=== PATIENT | male | born 1975 | race Caucasian/White ===

== ENCOUNTER 2023-08-29 21:42 | Emergency (ER) | payer OTHER, SELFPAY ==
[2023-08-29 21:44] VITALS: BP 124/78
--- NOTE | 2023-08-29 22:25 | ED.GENMED ---
History of Present Illness
General
Chief Complaint: Skin Problem
Source: patient
Exam Limitations: none
Time Seen by Provider: 08/29/23 22:03
Nursing documentation reviewed up to this point in time: agreed with
Travel History
Have you had any contact with someone who has COVID-19?: No
Do you have any symptoms of coronavirus? Fever > 100 degrees, chills, cough, shortness of breath, sore throat, loss of taste or smell, muscle aches, or headache?: No
History of Present Illness
History of Present Illness:
This is a 48-year-old gentleman who has history of rxd-ukwyuvy-igrwrhdmh diabetes, maintained on Farxiga. Fairly well-controlled with reported last hemoglobin A1c of 6.6. He also has history of gout, well-controlled and maintained on allopurinol.
He presents with left palmar laceration that occurred while working with a metal burring tool at home this afternoon around 12 noon, the tool slipped and cut his left thenar palm. He is right-hand dominant.
He admits to mild to moderate bleeding initially and thought that the cut looked 'deep' but rinsed it out with water peroxide, dressed the wound but then tonight upon further investigation he thought that he may need stitches and presents to the ED.
No recurrent bleeding. He admits to mild local pain. No weakness nor numbness.
He is unsure as to his last tetanus booster.
Past History
Past History
ED Past Medical History: NIDDM and Other (gout)
Social History
Tobacco: Non-smoker
Personal:
Living: with family
Employment: Employed
Family History
Family History: Other (Noncontributory)
Phy Exam
Physical Exam
Physical Exam:
TRAUMA EXAM:
VITAL SIGNS: Vital signs reviewed, cooperative
DISTRESS: No active disease
EYES: no orbital trauma
NOSE: No deformity or epistaxis
FACE AND SCALP: No scalp or facial trauma, external canals no blood
NECK: Supple nontender
BACK: Back nontender, pelvis stable to compression
RESPIRATORY: No distress
CARDIAC: No murmur, pulses equal and strong
ABDOMEN: Soft nontender bowel sounds normal
SKIN: Warm and dry, normal color. Good turgor.
EXTREMITIES: Left palm, thenar eminence has a 3 cm horizontal laceration that is deep epidermal to superficial subcutaneous in depth. This Wound Is Minimally at the lateral aspect. There is no active bleeding. No soft tissue swelling nor
ecchymosis. Minimal local tenderness to palpation. No foreign body. There is full digit and wrist range of motion without difficulty nor pain. Distal sensation and strength intact.
NEUROLOGICAL: Alert, oriented, no motor deficits
PSYCH: Mood affect normal
Course
Orders/Labs/Results
Orders:
Orders
08/29/23 22:22
Cephalexin Monohydrate [Keflex] 500 mg PO NOW STA
Tetanus/Diphth/Acelpertussis [Adacel] 0.5 ml IM .ONCE ONE
Vital Signs
Initial and Last Documented VS:
Initial Vital Signs
Temp Pulse Resp BP Pulse Ox
97.9 F 68 16 124/78 98
08/29/23 21:44 08/29/23 21:44 08/29/23 21:44 08/29/23 21:44 08/29/23 21:44
Last Documented Vital Signs
Temp Pulse Resp BP Pulse Ox
97.9 F 68 16 124/78 98
08/29/23 21:44 08/29/23 21:44 08/29/23 21:44 08/29/23 21:44 08/29/23 21:44
Procedures
Laceration Closure
Left Lateral Proximal Palmar Hand:
Status of Wound: clean
Size of Wound in cm: 3
Description of Wound Edges: sharp
Preparation: cleaned with saline
Revision/Debridement: routine- no revision and irrigate-direct pressure
Wound exploration: explored to base- no FB and no tendon involvement
Type of Closure: Dermabond-skin glue
MDM/Problems Addressed
Differential Diagnosis Includes:
Patient presents with left palmar wound/laceration occurred at home. Not work-related.
Wound is deep dermal to superficial subcutaneous in depth. There is no muscular involvement. Wound explored, no evidence of foreign body and no history of potential foreign body. No significant tenderness to palpation thus imaging is not
indicated.
Will update Tdap.
As patient has history of diabetes will initiate a short course of Keflex for infection prevention.
Will plan for copious normal saline irrigation and Dermabond repair.
Chronic conditions affecting care: DM
*Pulse Oximetry
Patient hypoxic: no
*Critical Care Note
Total Time (30-74mins, 75-104mins- exclusive of procedures): Not Applicable
ED Attending Note
-
Portions of this chart may have been created with voice recognition software.� Occasional wrong word or��sound alike� substitutions may have occurred due to the inherent limitations of voice recognition software.
Discharge Plan
Departure
Patient Disposition: Home (Routine Discharge)
Date of Disposition: 08/29/23
Time of Disposition: 22:48
Patient with high blood pressure during this ER visit?: No
Condition: Good
Discharge Problem:
Laceration of skin of left palm
Instructions: Tdap vaccine, Laceration Repair With Glue ED
Prescriptions:
New
cephalexin 500 mg capsule
1,000 mg PO BID 5 Days Qty: 20 0RF
Referrals:
Will Iniguez, [Family Provider] - As needed
Activity Restrictions/Additional Instructions:
Over the next 3 to 4 days try and keep wound clean and dry. Wear gloves or wrap your hand with cellophane while showering.
Wound glue will dry, cracked and flake off on its own generally this takes 7 to 10 days. Do not peel or pick at the wound glue.
You can take Tylenol or ibuprofen as needed for discomfort.
You had been prescribed Keflex to take 2 capsules twice a day over the next 5 days for infection prevention.
Follow-up with your family doctor for recheck as needed.
Interventions
Interventions:
*Risk Screen - Suicide Last Done: 08/29/23 21:44
*General Assessment Last Done: 08/29/23 21:44
*Neglect/Abuse Screening Last Done: 08/29/23 21:44
ED-Skin Assessment Last Done: 08/29/23 22:47
Discharge Date and Time
Print Language: BANGLADESHI
[2023-08-29] MEDS: ADACEL 0.5 ML IM (22:40)
[2023-08-29] MEDS: KEFLEX 500 MG PO (22:40)
== END 2023-08-29 22:52 | disposition home or self-care (01) ==
LOC: EMR 21:42
PROVIDERS: EMERGENCY PHYSICIAN Emergency Medicine; FAMILY PHYSICIAN Family Medicine Sports Medicine
DX: S61.412A Laceration without foreign body of left hand, initial encounter (principal); W45.8XXA Other foreign body or object entering through skin, initial encounter; Z23 Encounter for immunization; E11.9 Type 2 diabetes mellitus without complications
CPT/HCPCS: 99282; 12002; 90471; 90715